=== PATIENT | female | born 1985 | race Asian ===

== ENCOUNTER 2016-05-09 06:44 | Emergency (ER) | payer OTHER ==
[~2016-05-09] VITALS: Ht 157.5 cm; Wt 57.6 kg
[2016-05-09] MEDS ORDERED: METHYLPREDNISOLO4 M2 (07:14)
--- NOTE | 2016-05-09 07:45 | ED SKIN/ALLERGY COMPLAINT ---
History of Present Illness General Chief Complaint: Skin Rash/ Abcess Stated Complaint: RASH ALL OVER Source: patient, family, old records Exam Limitations: no limitations Vital Signs & Intake/Output Vital Signs & Intake/Output Vital Signs Date Time Temp Pulse Resp B/P Pulse O2 O2 Flow FiO2 Ox Delivery Rate 05/09 0801 97.8 85 20 102/62 96 Room Air 05/09 0709 Room Air 05/09 0649 98.2 100 18 119/77 99 Room Air Allergies Coded Allergies: metronidazole (From FLAGYL) (05/09/16) Reconcile Medications Diphenhydramine HCl (Benadryl Allergy) 25 MG TABLET 1-2 TAB PO Q6P PRN itchy rash Famotidine (Pepcid) 20 MG TABLET 1 TAB PO BID allergy Methylprednisolone (Unknown Strength) TAB.DS.PK (Unknown Dose) INFLAMMATION ( Reported) Triage Note: STATES THAT SHE HAS HAD AN ITCHY RASH SINCE WEDNESDAY PM, STATES THAT IT STARTED AFTER SHE ATE. DENIES SOB, O2 SAT 99 % ON RA Triage Nurses Notes Reviewed? yes Onset: 5 days Duration: constant, continues in ED Timing: recent history Severity: moderate, severe Location: scalp, face, torso, extremities Possible Factors: foods, medications Modifying Factors: Improves With: antihistamine, prednisone, scratching. Associated Symptoms: change in skin texture, flushing, hives, rash LMP (ages 10-50): unknown : No Patient currently breastfeeds: No HPI: 5 days prior to admission [place] she developed an itchy rash on her face. She reports her spouse also developed rash on the extremities. She's been undergoing in vitro fertilization and has been taking Flagyl for the last 2 weeks with last dose yesterday. 2 days prior to admission she went to a local walk-in center and was given Medrol Dosepak and IM Benadryl. She denies fever chills nausea vomiting diarrhea abdominal pain chest pain shortness of breath headache dysuria bleeding new soap shampoo detergent over- the-counter medications. Past History Travel History Traveled to [place] past 21 day No Medical History Any Pertinent Medical History? none Neurological: NONE EENT: NONE Cardiovascular: NONE Respiratory: NONE Gastrointestinal: NONE Hepatic: NONE Renal: NONE Musculoskeletal: NONE Psychiatric: NONE Endocrine: NONE Blood Disorders: NONE Cancer(s): NONE COURT OFFICER/Reproductive: NONE Surgical History Surgical History: non-contributory Psychosocial History What is your primary language Cuban Tobacco Use: Never used ETOH Use: denies use Illicit Drug Use: denies illicit drug use Family History Hx Contributory? No Review of Systems Review of Systems Constitutional: Reports: no symptoms. EENTM: Reports: no symptoms. Respiratory: Reports: no symptoms. Cardiovascular: Reports: no symptoms. GI: Reports: no symptoms. Genitourinary: Reports: no symptoms. Musculoskeletal: Reports: no symptoms. Skin: Reports: see HPI, rash. Neurological/Psychological: Reports: no symptoms. Hematologic/Endocrine: Reports: no symptoms. Immunologic/Allergic: Reports: no symptoms. All Other Systems: Reviewed and Negative Physical Exam Physical Exam General Appearance: well developed/nourished, alert, awake, anxious, moderate distress Head: atraumatic, erythema and edema urticarial plaques over areas of the cheeks below the eyes and ears Eyes: Bilateral: normal appearance, PERRL, EOMI. Ears, Nose, Throat: normal pharynx, normal ENT inspection, hearing grossly normal, moist mucus membranes Neck: supple, full range of motion, no midline tenderness, urticarial plaque over the anterior surface of the neck extending to the chest Respiratory: normal breath sounds, chest non-tender, no respiratory distress Cardiovascular: regular rate/rhythm, normal peripheral pulses, norml femoral pulses equa Peripheral Pulses: 4+ carotid (R), 4+ carotid (L) Gastrointestinal: normal bowel sounds, soft, non-tender, no organomegaly Back: normal inspection, normal range of motion, no vertebral tenderness Extremities: normal capillary refill, normal range of motion, no edema Neurologic/Psych: no motor/sensory deficits, awake, alert, oriented x 3, normal gait, normal mood/affect Reflexes: 4+: bicep (R), bicep (L). Skin: intact, rash Skin Problem Location: face, scalp, neck, upper extremities, torso, lower extremities Skin Problem Character: erythema, patchy, rash, urticarial Lymphatic: no anterior cervical papito Progress Differential Diagnosis: abscess/cellulitis, allergic reaction, angioedema, contact dermatitis, drug reaction, urticaria Plan of Care: Current Medications Sig/Aime Start time Last Medication Dose Stop Time Status Admin Diphenhydramine HCl 25 MG ONCE ONE 05/09 729 UNVr (Benadryl) 05/09 730 Famotidine 20 MG ONCE ONE 05/09 729 UNVr (Pepcid) 05/09 730 Methylprednisolone 125 MG ONCE ONE 05/09 729 UNVr (Solu Medrol) 05/09 730 Departure Departure Time of Disposition: 899 Disposition: HOME OR SELF CARE Condition: Stable Clinical Impression Primary Impression: Urticaria due to drug allergy Secondary Impressions: Urticaria due to food allergy Referrals: [facility] BAI,MARTHA Rogers Call for dermatology follow up Additional Instructions: Continue solumedrol dose kelley Departure Forms: Customer Survey General Discharge Information Prescriptions: Current Visit Scripts Famotidine (Pepcid) 1 TAB PO BID #10 TAB Diphenhydramine HCl (Benadryl Allergy) 1-2 TAB PO Q6P PRN itchy rash #30 TAB Ref 1
[2016-05-09 08:01] VITALS: BP 102/62
[2016-05-09] MEDS ORDERED: BENADRYL ALLERG25 M2 PO (08:03)
[2016-05-09] MEDS ORDERED: PEPCID20 M1 PO (08:03)
== END 2016-05-09 09:31 ==
LOC: ERH 06:44
DX: L50.0 Allergic urticaria (principal)
CPT/HCPCS: 96374; 96375; J1200; J2930

== ENCOUNTER 2016-06-28 11:16 | Emergency (ER) | payer OTHER ==
[~2016-06-28] VITALS: Ht 157.5 cm; Wt 56.7 kg
[~2016-06-28 11:16] MED LIST: BENADRYL ALLERG25 M2 PO; METHYLPREDNISOLO4 M2; PEPCID20 M1 PO
[2016-06-28 12:06] LABS: ABSOLUTE BASOPHIL COUNT 0 /CUMM (0.0-0.2); ABSOLUTE EOSINOPHIL COUNT 0.3 /CUMM (0.0-0.7); ABSOLUTE GRANULOCYTE CT 4.3 /CUMM (1.4-6.5); ABSOLUTE LYMPH COUNT 2.2 /CUMM (1.2-3.4); ABSOLUTE MONOCYTE COUNT 0.5 /CUMM (0.10-0.60); BASOPHIL % 0.4 % (0.0-2.0); EOSINOPHIL % 3.9 % (0-5); GRANULOCYTE % 59.1 % (42.2-75.2); HEMATOCRIT 40.2 % (37-47); MEAN CORPUSCULAR HGB 29.3 PG (27.0-31.0); MEAN CORPUSCULAR HGB CONC 33.7 G/DL (33.0-37.0); MEAN CORPUSCULAR VOLUME 86.9 FL (81.0-99.0); MEAN PLATELET VOLUME 8.5 FL (7.4-10.4); PLATELET COUNT 171 /CUMM (130-400); RBC DISTRIBUTION WIDTH 13.7 % (11.5-14.5); RED BLOOD CELL CT 4.63 /CUMM (4.20-5.40); WHITE BLOOD CELL COUNT 7.3 /CUMM (4.8-10.8)
[2016-06-28] MEDS ORDERED: PRENATAL PLUS1 EAC1 PO (12:13)
[2016-06-28] MEDS ORDERED: ESTRADIOL2 M1 PO (12:15)
[2016-06-28] MEDS ORDERED: PROGESTERONE200 M2 PO (12:15)
[2016-06-28] MEDS ORDERED: PROGESTERO50 MG/1 M1 IM (12:16)
[2016-06-28] MEDS ORDERED: ASPIRIN81 M4 PO (12:16)
[2016-06-28 12:18] LABS: PT 10.3 SEC (9.4-12.5); PTT 32 SEC (25-37)
--- NOTE | 2016-06-28 13:16 | ED GI/GU/ABDOMINAL COMPLAINT ---
History of Present Illness General Chief Complaint: General Adult Stated Complaint: 4-6 WEEKS PREG/BLEEDING Source: patient Exam Limitations: no limitations Vital Signs & Intake/Output Vital Signs & Intake/Output Vital Signs Date Time Temp Pulse Resp B/P B/P Pulse O2 O2 Flow FiO2 Mean Ox Delivery Rate 06/28 1400 98 06/28 1359 97.0 67 16 118/72 98 Room Air 06/28 1120 97.8 77 18 122/80 98 Room Air Allergies Coded Allergies: metronidazole (From FLAGYL) (05/09/16) Reconcile Medications Aspirin (Aspirin*) 81 MG TAB.CHEW 1 TAB PO DAILY ??IVF (Reported) Estradiol 2 MG TABLET 3 TAB PO DAILY IVF (Reported) Pnv With Ca,No.72/Iron/FA ( Plus Tablet) 27 MG IRON-1 MG TABLET 1 TAB PO DAILY IVF (Reported) Progesterone (Progesterone in Oil) 50 MG/ML VIAL 50 MG IM DAILY IVF (Reported ) Progesterone,Micronized (Progesterone) 200 MG CAPSULE 1 CAP PO BID IVF ( Reported) Triage Note: PT STATES THAT SHE IS 7 WEEKS , A FEW DAYS AGO SHE HAD SOME SPOTTING , BUT TODAY SHE IS HAVING BRIGHT RED BLOOD, SMALL AMOUNT AND SOME LOW ABD CRAMPING Triage Nurses Notes Reviewed? yes ? Y Is pt currently ? No HPI: This patient is a 30-year-old female who presented to the emergency department today for evaluation of vaginal bleeding. This patient is approximately 7 weeks gestation. She reported that the physician that she sees for her is in [place]. This physician has been working with her for IVF. The patient reported that a couple days ago she started having some vaginal spotting. She reported that today she noticed that there was a small amount of bright red blood on a pad, approximately the size of a silver dollar. The patient reported that she has had a little bit more bleeding since then, but much less. She reported some mild lower abdominal cramping. She was unable to give a number to quantify this pain on a pain scale, but reported that it is, "only a little bit. " The pain is nonradiating and intermittent. The patient denied any nausea or vomiting. No back pain, urinary burning, urgency, frequency, blood in the urine , fevers, chills, chest pain, or difficulty breathing. Past History Travel History Traveled to [place] past 21 day No Medical History Any Pertinent Medical History? see below for history Neurological: NONE EENT: NONE Cardiovascular: NONE Respiratory: NONE Gastrointestinal: NONE Hepatic: NONE Renal: NONE Musculoskeletal: NONE Psychiatric: NONE Endocrine: NONE Blood Disorders: NONE Cancer(s): NONE VETERANS SERVICES SPECIALIST/Reproductive: NONE Surgical History Surgical History: non-contributory Psychosocial History What is your primary language Hebrew Tobacco Use: Never used ETOH Use: denies use Illicit Drug Use: denies illicit drug use Family History Hx Contributory? No Review of Systems Review of Systems Constitutional: Reports: no symptoms. EENTM: Reports: no symptoms. Respiratory: Reports: no symptoms. Cardiovascular: Reports: no symptoms. GI: Reports: see HPI. Genitourinary: Reports: see HPI. Musculoskeletal: Reports: no symptoms. Skin: Reports: no symptoms. Neurological/Psychological: Reports: no symptoms. All Other Systems: Reviewed and Negative Physical Exam Physical Exam Gastrointestinal: normal bowel sounds, soft, non-tender, no organomegaly, NONDISTENDED. nO REBOUND OR GUARDING. nO PERITONEAL SIGNS. nO MASSES APPRECIATED Comments: Well-developed well-nourished person in no acute distress HEENT: Normal EENT exam, head normocephalic, moist mucous membranes Pupils equally round and reactive to light. Neck: Supple, no lymphadenopathy Back: Normal gait. Normal inspection Respiratory: Chest nontender. No respiratory distress. Speaking in full sentences Extremity: Normal and equal pulses Neuro: Alert oriented x3, cranial nerves II through XII grossly intact. Skin: No appreciable rash on exposed skin, skin is warm and dry. Psych: Mood and affect is normal Core Measures ACS in differential dx? No Severe Sepsis Present: No Septic Shock Present: No Progress Differential Diagnosis: appendicitis, biliary colic, bowel obstruction, colon cancer, cholecystitis, diverticulitis, ectopic , endometritis, gastritis, ischemic bowel, inflamm bowel dis, intrauterine , kidney stone, ovarian cyst, ovarian torsion, pancreatitis, PID/cervicitis, PUD/GERD, perforated viscous, threatened AB, UTI/pyelo Plan of Care: Orders Procedure Date/time Status URINALYSIS 06/28 1144 Complete PARTIAL THROMBOPLASTIN TIME 06/28 1144 Complete PROTHROMBIN TIME 06/28 1144 Complete HUMAN BETA HCG TITRE 06/28 1144 Complete COMPREHENSIVE METABOLIC PANEL 06/28 1144 Complete CBC WITHOUT DIFFERENTIAL 06/28 1144 Complete TYPE & SCREEN (NOT X-MATCH) 06/28 1144 Complete Laboratory Tests 06/28/16 1206: Urinalysis LIGHT H, Urine Color YEL, Urine Clarity CLEAR, Urine pH 6.0, Ur Specific Merino 1.020, Urine Protein NEG, Urine Ketones NEG, Urine Nitrite NEG, Urine Bilirubin NEG, Urine Urobilinogen 0.2, Ur Leukocyte Esterase NEG, Ur Microscopic SEDIMENT EXAMINED, Urine RBC 5-10 H, Urine WBC RARE, Ur Epithelial Cells FEW, Urine Bacteria MOD H, Urine Hemoglobin LARGE H, Urine Glucose NEG 06/28/16 1113: Anion Gap 13, Estimated GFR > 60, BUN/Creatinine Ratio 18.3, Glucose 88, Calcium 9.8, Total Bilirubin 0.5, AST 29, ALT 78 H, Alkaline Phosphatase 39, Total Protein 7.5, Albumin 4.3, Globulin 3.2, Albumin/Globulin Ratio 1.3, Beta HCG, Quant 296248.0, PT 10.3, INR 0.98, APTT 32, CBC w Diff NO MAN DIFF REQ, RBC 4.63 , MCV 86.9, MCH 29.3, RDW 13.7, MPV 8.5, Gran % 59.1, Lymphocytes % 30.4, Monocytes % 6.2, Eosinophils % 3.9, Basophils % 0.4, Absolute Granulocytes 4.3, Absolute Lymphocytes 2.2, Absolute Monocytes 0.5, Absolute Eosinophils 0.3, Absolute Basophils 0, PUBS MCHC 33.7 Diagnostic Imaging: Viewed by Me: Ultrasound. Discussed w/RAD: Ultrasound. Radiology Impression: PATIENT: VERONIKA CAM PRESENT AGE: 30 PATIENT ACCOUNT NO: [id number] : 85 LOCATION: [facility] [place] ORDERING PHYSICIAN: GIOVANNI YAN PA-C SERVICE DATE: 06/28/16 EXAM TYPE: US - US- TRANSVAGINAL EXAMINATION: FIRST TRIMESTER OBSTETRICAL SONOGRAM CLINICAL INFORMATION: Several weeks gestation. Vaginal bleeding and cramping. Rule out ectopic. IVF transferred on 06/03/2016. COMPARISON: None TECHNIQUE: Multiple transverse and longitudinal sonograms of the uterus were obtained. FINDINGS: 2 intrauterine pregnancies are identified with separate gestational sacs and a thick intervening membrane compatible with dichorionic diamniotic twins. Per the patient, she underwent in vitro fertilization with transfer of 2 embryos on . The patient was not able to provide the date of conception. If the date of transfer is assumed to be the date of conception, the clinical age is 5 weeks 4 days, clinical PALAK 02/24/2017. Both gestational sacs demonstrate a yolk sac and embryo with a heart rate. Mean crown-rump length of embryo 1 is 0.5 cm. Mean crown-rump length of embryo 2 is 0.6 cm. Embryonic heart rate 135 bpm for embryo 1, 123 bpm for embryo 2. The filer metal patterns was unable to separately calculate the gestational age for the embryos separately so the values are averaged. This gives a sonographic gestational age of 6 weeks 4 days corresponding to a sonographic PALAK of 02/17/2017. Normal appearance of the ovaries bilaterally. The right ovary measures 3.1 x 2.2 x 2.3 cm. The left ovary measures 2.5 x 1.5 x 1.8 cm. There are physiologic follicular cysts but no adnexal mass seen. No free fluid in the pelvis; no hemoperitoneum. IMPRESSION: 2 living intrauterine pregnancies consistent with dichorionic diamniotic twins. The filer metal patterns was unable to separately calculated gestational age for the embryo separately so the values are averaged, with a sonographic gestational age of 6 weeks 4 days corresponding to a sonographic PALAK of 02/17/2017. The patient was not able to provide the date of conception. If the date of transfer is assumed to be the date of conception, the clinical age is 5 weeks 4 days, clinical PALAK 02/24/2017. Lastly, per the patient, 2 embryos were transferred. Recommend correlation with notes from the procedure for definitive confirmation of the number embryos transferred as there is an increased risk of heterotopic pregnancies in the setting of in vitro fertilization. DICTATED BY: KARYN MICHAEL MD DATE/TIME DICTATED:06/28/161404 ACADEMIC AFFAIRS VICE PRESIDENT:BOB DATE/TIME TRANSCRIBED:1404 CONFIDENTIAL, DO NOT COPY WITHOUT APPROPRIATE AUTHORIZATION. < Electronically signed in Other Vendor System> SIGNED BY: KARYN MICHAEL MD 06/28/16 1419 Initial ED EKG: none Comments: 06/28/2016 2:39:49 PM: This patient sees Dr. Hannah Chambers at [address] [place] [address] in [facility]. I spoke to a nurse in his office. Dr. Chambers is currently out of the office today. She is going to have the covering physician give me a call back. 06/28/2016 2:48:52 PM: I spoke to the covering doctor at [facility] in [place], Dr. BROWN. There was no subchorionic hemorrhage or cervical os opening noted on the transvaginal ultrasound. I discussed with this doctor this patient's workup and ultrasound results. He reported that bleeding is very common and multiple gestation. He reported that she should continue her described medication from them and that she can follow up in their office. He reported that he will speak to this patient's doctor, Dr. Chambers regarding this call. Departure Departure Disposition: HOME OR SELF CARE Condition: Stable Clinical Impression Primary Impression: Vaginal bleeding before 22 weeks gestation Referrals: PATIENT HAS NO PRIMARY CARE DR (PCP/Family) Additional Instructions: Please avoid any strenuous activity or heavy lifting. Rest. Please call your fertility doctor, Dr. Chambers, to schedule a follow-up appointment. Return to the emergency department for any worsening symptoms or concerns. Departure Forms: Customer Survey General Discharge Information
[2016-06-28 13:59] VITALS: BP 118/72
--- NOTE | 2016-06-28 14:19 | ULTRASOUND REPORT ---
EXAMINATION: FIRST TRIMESTER OBSTETRICAL SONOGRAM CLINICAL INFORMATION: Several weeks gestation. Vaginal bleeding and cramping. Rule out ectopic. IVF transferred on 06/03/2016. COMPARISON: None TECHNIQUE: Multiple transverse and longitudinal sonograms of the uterus were obtained. FINDINGS: 2 intrauterine pregnancies are identified with separate gestational sacs and a thick intervening membrane compatible with dichorionic diamniotic twins. Per the patient, she underwent in vitro fertilization with transfer of 2 embryos on 06/03/2016. The patient was not able to provide the date of conception. If the date of transfer is assumed to be the date of conception, the clinical age is 5 weeks 4 days, clinical PALAK 02/24/2017. Both gestational sacs demonstrate a yolk sac and embryo with a heart rate. Mean crown-rump length of embryo 1 is 0.5 cm. Mean crown-rump length of embryo 2 is 0.6 cm. Embryonic heart rate 135 bpm for embryo 1, 123 bpm for embryo 2. The earth science professor was unable to separately calculate the gestational age for the embryos separately so the values are averaged. This gives a sonographic gestational age of 6 weeks 4 days corresponding to a sonographic PALAK of 02/17/2017. Normal appearance of the ovaries bilaterally. The right ovary measures 3.1 x 2.2 x 2.3 cm. The left ovary measures 2.5 x 1.5 x 1.8 cm. There are physiologic follicular cysts but no adnexal mass seen. No free fluid in the pelvis; no hemoperitoneum. IMPRESSION: 2 living intrauterine pregnancies consistent with dichorionic diamniotic twins. The earth science professor was unable to separately calculated gestational age for the embryo separately so the values are averaged, with a sonographic gestational age of 6 weeks 4 days corresponding to a sonographic PALAK of 02/17/2017. The patient was not able to provide the date of conception. If the date of transfer is assumed to be the date of conception, the clinical age is 5 weeks 4 days, clinical PALAK 02/24/2017. Lastly, per the patient, 2 embryos were transferred. Recommend correlation with notes from the procedure for definitive confirmation of the number embryos transferred as there is an increased risk of heterotopic pregnancies in the setting of in vitro fertilization.
== END 2016-06-28 15:11 ==
LOC: ERH 11:16
PROVIDERS: Physician Assistant
DX: O20.9 Hemorrhage in early pregnancy, unspecified (principal); Z3A.01 Less than 8 weeks gestation of pregnancy
CPT/HCPCS: 81001